=== PATIENT | male | born 1960 | race Caucasian/White ===

== ENCOUNTER → 2023-10-29 10:58 | Outpatient (BNVA) | payer MEDICARE, SELFPAY | PROVIDERS: Visit Provider Surgery | DX: Z12.11 Encounter for screening for malignant neoplasm of colon (principal) | CPT/HCPCS: 99024; 99203 ==

== ENCOUNTER 2024-07-22 05:50 | Day surgery (SDC) | payer MEDICARE, SELFPAY ==
--- NOTE | 2024-07-22 05:18 | W.PM.OPSFHP ---
Same Day Surgery H&P Indication for Procedure/HPI DATE OF PROCEDURE: July 22, 2024 CHIEF COMPLAINT/INDICATIONFOR SURGICAL PROCEDURE: need for screening colonoscopy PREOP DIAGNOSIS: need for screening colonoscopy PLANNED PROCEDURE: Operation Date: 07/22/24 07:00 Proposed Procedures p Colonoscopy - 64279, G0105, Z12.11(Not Applicable) - Ad Shepard MD Medications/Allergies* Home Medications Medication Instructions Recorded Confirmed Type albuterol sulfate 90 mcg/actuation 2 puff inhalation PRN PRN 10/29/23 07/19/24 History aerosol inhaler Shortness Of Breath esomeprazole magnesium 40 mg 40 mg PO DAILY 10/29/23 07/19/24 History capsule,delayed release insulin aspart U-100 100 unit/mL See Rx Instructions .Route .COMPLEX 10/29/23 07/19/24 History (3 mL) subcutaneous pen (Novolog FlexPen U-100 Insulin aspart) insulin glargine 100 100 unit SUBCUT DAILY 10/29/23 07/19/24 History unit-lixisenatide 33 mcg/mL subcutaneous pen (Soliqua 100/33) meloxicam 15 mg tablet 15 mg PO DAILY 10/29/23 07/19/24 History methocarbamol 500 mg tablet 500 mg PO BID 10/29/23 07/19/24 History metoprolol succinate 50 mg 50 mg PO DAILY 10/29/23 07/19/24 History tablet,extended release 24 hr testosterone cypionate 200 mg/mL 200 mg IM .2x a month 10/29/23 07/19/24 History intramuscular oil Allergies/Adverse Reactions Allergy/AdvReac Type Severity Reaction Status Date / Time No Known Allergies Allergy Unverified 02/27/24 08:47 Pertinent History/Comorbid Conditions* Family History (Updated 10/29/23 @ 11:12 by STU Costa) Father Cancer Father unknown what kind Social History Smoking and tobacco/nicotine status: never used tobacco/nicotine Alcohol intake: current Alcohol intake frequency: holidays/special occasions only Pertinent Exam Findings alert, oriented x 3, clear to auscultation bilaterally and regular rate & rhythm Recommendations Surgery/Procedure today Coding Level of Care Code Acute Code for Chg Fwd
[2024-07-22 06:05] VITALS: BP 157/92; PULSE 71; RESP 17; TEMP 36.5; O2SAT 98; BMI 35.2
[2024-07-22] MEDS: sodium chloride 0.9% 500 ML 15 ML IV (06:16)
[2024-07-22 06:18] LABS: Glucose Point of Care 154 mg/dL (70-110)
--- NOTE | 2024-07-22 07:04 | ANES.PREANE2 ---
Pre-Anesthetic Assessment Height/Weight: Height 1.83 m Weight 117.934 kg Temp Pulse Resp BP Pulse Ox O2 Del Method 97.7 F 71 17 157/92 98 Room Air 07/22/24 06:05 07/22/24 06:05 07/22/24 06:05 07/22/24 06:05 07/22/24 06:05 07/22/24 06:05 Preop Diagnosis: need for screening colonoscopy Operation Date: 07/22/24 07:00 Proposed Procedures p Colonoscopy - 91735, G0105, Z12.11(Not Applicable) - Ad Shepard MD Was Beta Josr taken within 24 hours: Yes Was Clonidine taken within 24 hours: N/A Last intake: Intake Last Liquid Date 07/21/24 Last Liquid Time 21:00 Last Solid Date 07/20/24 Last Solid Time 18:00 Social No alcohol and No tobacco Exam alert, oriented x 3, clear to auscultation bilaterally and regular rate & rhythm Airway Submandibular: within normal limits Cervical ROM: within normal limits Mallampati: Class II Dentition: full History/ROS No significant history except as noted and No significant complaints Pulmonary Asthma, Sleep Apnea and Shortness of Breath CV/HEM Hypertension None reported Hepatic None reported GI None reported Metabolic Diabetes Mellitus and Morbid Obesity [facility] [place] None reported Neuropsych None reported Anesthetic Plan ASA status: 3 Anesthesia: Anesthesia Evaluation and MAC Risk of > 500 ml blood loss (7ml/kg in children): No Medications/Allergies Home Medications Medication Instructions Recorded Confirmed Last Taken Type albuterol sulfate 90 mcg/actuation 2 puff inhalation PRN PRN 10/29/23 07/22/24 Unknown History aerosol inhaler Shortness Of Breath esomeprazole magnesium 40 mg 40 mg PO DAILY 10/29/23 07/19/24 07/19/24 History capsule,delayed release insulin aspart U-100 100 unit/mL See Rx Instructions .Route .COMPLEX 10/29/23 07/22/24 07/19/24 History (3 mL) subcutaneous pen (Novolog FlexPen U-100 Insulin aspart) insulin glargine 100 100 unit SUBCUT DAILY 10/29/23 07/22/24 07/19/24 History unit-lixisenatide 33 mcg/mL subcutaneous pen (Soliqua 100/33) meloxicam 15 mg tablet 15 mg PO DAILY 0307/19/24 07/19/24 History methocarbamol 500 mg tablet 500 mg PO BID 10/29/23 07/22/24 07/16/24 History metoprolol succinate 50 mg 50 mg PO DAILY 10/29/23 07/22/24 07/22/24 History tablet,extended release 24 hr testosterone cypionate 200 mg/mL 200 mg IM .2x a month 10/29/23 07/22/24 2 Weeks Ago History intramuscular oil ~07/08/24 Allergies Allergy/AdvReac Type Severity Reaction Status Date / Time No Known Allergies Allergy Unverified 02/27/24 08:47 Current Medications Generic Name Dose Route Start Last Admin Trade Name Freq PRN Reason Stop Dose Admin Sodium Chloride 500 mls @ 15 mls/hr 07/22/24 05:55 07/22/24 06:16 Sodium Chloride 0.9% IV 07/23/24 05:54 15 mls/hr .Q24H PRN Administration COLONOSCOPY FLUIDS PFSH Anesthesia Family History (Updated 10/29/23 @ 11:12 by STU Costa) Father Cancer unknown what kind Social History (Updated 10/29/23 @ 11:13 by STU Costa) Smoking and tobacco/nicotine status: never used tobacco/nicotine Alcohol intake: current Alcohol intake frequency: holidays/special occasions only Data Anesthesia Cardiac Studies: No Data to Display
[2024-07-22 07:27] VITALS: BP 120/60; PULSE 66; RESP 20; TEMP 36.5; O2SAT 92
[2024-07-22 07:32] VITALS: BP 126/63; PULSE 62; RESP 20; O2SAT 92
[2024-07-22 07:42] VITALS: BP 120/66; PULSE 71; RESP 20; O2SAT 96
--- NOTE | 2024-07-22 08:16 | ANE.PACU2 ---
Inpatient post-anesthesia follow up: Airway intact: Yes Vital signs: Temperature 97.7 F Pulse Rate 71 Respiratory Rate 20 Blood Pressure 120/66 Pulse Oximetry 96 Oxygen Delivery Me thod Room Air Oxygen Flow Rate 3 Fraction of Inspir ed Oxygen Hydration adequate: Yes Nausea and vomiting: No Pain level: 1 Mental status: Baseline
== END 2024-07-22 08:16 | disposition home or self-care (01) ==
PROVIDERS: PCP Family Medicine; Visit Provider Surgery
PROC: 0DJD8ZZ Inspection of Lower Intestinal Tract, Via Natural or Artificial Opening Endoscopic (ICD-10-PCS; CPT 45378; principal; 2024-07-22 07:00)
DX: Z12.11 Encounter for screening for malignant neoplasm of colon (principal); K63.5 Polyp of colon
CPT/HCPCS: 36416; 45380; 82962; 88305; J2704; J3490; J7040

== ENCOUNTER → 2024-09-01 08:55 | Outpatient (BNVA) | payer MEDICARE, SELFPAY | PROVIDERS: PCP Family Medicine; Visit Provider Surgery | DX: Z09 Encounter for follow-up examination after completed treatment for conditions other than malignant neoplasm (principal); R03.0 Elevated blood-pressure reading, without diagnosis of hypertension | CPT/HCPCS: 99214 ==